=== PATIENT | female | born 1965 | race African-American/Black ===

== ENCOUNTER 2016-09-13 19:41 | Inpatient (IN) | payer MEDICAID ==
[~2016-09-13] VITALS: Ht 165.1 cm; Wt 91.6 kg
[~2016-09-13 19:41] MED LIST: FAMO20TA7 PO; GABA100C8 PO; LISI-170 PO; METR250T PO; QUET300T6 PO
[2016-09-13] MEDS ORDERED: SODIUM CHLORIDE FLUSH 10ML SYR IVF ONE (20:00)
[2016-09-13] MEDS ORDERED: SODIUM CHLORIDE 0.9% 1,000ML IVBOLUS ONE (20:00)
[2016-09-13] MEDS ORDERED: ONDANSETRON 2MG/ML, 2ML IVPush ONE (20:00)
[2016-09-13 20:18] LABS: HEMOGLOBIN 10.9 g/dL (11.7-16.4)
[2016-09-13 20:21] LABS: BLOOD UREA NITROGEN 10 mg/dL (7-18)
[2016-09-13 20:27] LABS: ASPARTATE AMINO TRANSFERASE 82 U/L (15-37); IS PT STATUS REG ER OR PRE ER? YES
[2016-09-13] MEDS ORDERED: ONDANSETRON 2MG/ML, 2ML ONE (20:51)
[2016-09-13] MEDS ORDERED: LORazepam 2 MG/ML, 1ML ONE (20:51)
[2016-09-13] MEDS ORDERED: LORazepam 2 MG/ML, 1ML IVPush ONE (21:00)
[2016-09-13] MEDS: NS + 20MEQ KCL 1,000 ML IV SCH (23:50)
[2016-09-14] MEDS ORDERED: MORPHINE SULFATE 4 MG/ML, 1ML IVPush PRN
[2016-09-14] MEDS ORDERED: POTASSIUM CHLORIDE 20 MEQ, MAGNESIUM SULFATE 1 GM, THIAMINE 100 MG, FOLIC ACID 1 MG, MV... IV SCH
[2016-09-14] MEDS ORDERED: ONDANSETRON 2MG/ML, 2ML IVP PRN
[2016-09-14] MEDS: FAMOTIDINE 20 MG/2 ML IV SCH ×2 (01:50→09:36)
[2016-09-14] MEDS: LORazepam 2 MG/ML, 1ML IVPush PRN ×2 (01:51→09:36)
[2016-09-14 02:00] VITALS: BP 163/90
[2016-09-14 04:14] VITALS: BP 163/90
[2016-09-14 07:21] VITALS: BP 156/100
[2016-09-14] MEDS: QUETIAPINE FUMARATE 300 MG HOMEMEDPO SCH (09:00)
[2016-09-14] MEDS: ENOXAPARIN 40 MG/0.4 ML SQ SCH (09:36)
[2016-09-14] MEDS: LISINOPRIL 20 MG TABLET PO SCH (09:36)
[2016-09-14] MEDS: GABAPENTIN 100 MG CAPSULE PO SCH (09:36)
[2016-09-14 11:31] LABS: HEMOGLOBIN 10.7 g/dL (11.7-16.4)
[2016-09-14 11:32] LABS: ASPARTATE AMINO TRANSFERASE 76 U/L (15-37); BLOOD UREA NITROGEN 5 mg/dL (7-18)
[2016-09-14] MEDS: NS + 20MEQ KCL 1,000 ML IV SCH (11:43)
[2016-09-14 13:10] VITALS: BP 147/91
[2016-09-14] MEDS ORDERED: LACTATED RINGERS 1,000 ML IV SCH (14:00)
[2016-09-14] MEDS ORDERED: LACTATED RINGERS 1,000 ML IVBOLUS ONE (14:00)
[2016-09-14 22:15] VITALS: BP 126/76
[2016-09-14] MEDS ORDERED: ONDANSETRON ODT 4 MG ONE (22:20)
[2016-09-14] MEDS: BACLOFEN 10 MG TABLET PO SCH (22:21)
[2016-09-14] MEDS ORDERED: ONDANSETRON ODT 4 MG PO PRN (22:30)
[2016-09-15 01:36] VITALS: BP 132/71
[2016-09-15 06:50] VITALS: BP 154/84
[2016-09-15] MEDS: QUETIAPINE FUMARATE 300 MG HOMEMEDPO SCH (09:00)
[2016-09-15] MEDS: ENOXAPARIN 40 MG/0.4 ML SQ SCH (10:03)
[2016-09-15] MEDS: LISINOPRIL 20 MG TABLET PO SCH (10:04)
[2016-09-15] MEDS: THIAMINE 100MG TABLET PO SCH (10:04)
[2016-09-15] MEDS: BACLOFEN 10 MG TABLET PO SCH ×2 (10:04→19:46)
[2016-09-15] MEDS: FOLIC ACID 1 MG TABLET PO SCH (10:04)
[2016-09-15] MEDS: GABAPENTIN 100 MG CAPSULE PO SCH (10:04)
[2016-09-15] MEDS: CYANOCOBALAMIN 1,000 MCG TABLET PO SCH (10:04)
[2016-09-15] MEDS: MULTIVITAMIN 1 TABLET PO SCH (10:05)
[2016-09-15 10:09] LABS: HEMOGLOBIN 10.3 g/dL (11.7-16.4)
[2016-09-15 10:10] LABS: BLOOD UREA NITROGEN 7 mg/dL (7-18)
[2016-09-15 10:15] LABS: ASPARTATE AMINO TRANSFERASE 86 U/L (15-37)
[2016-09-15] MEDS ORDERED: LORazepam 1MG TABLET PO PRN ×2 (11:30)
[2016-09-15 12:47] VITALS: BP 149/82
[2016-09-15 19:50] VITALS: BP 158/81
[2016-09-16] MEDS: OXYcodone IR 5MG TABLET PO PRN ×4 (00:55→20:17)
[2016-09-16 03:32] VITALS: BP 150/85
[2016-09-16 06:51] VITALS: BP 177/97
[2016-09-16] MEDS: ENOXAPARIN 40 MG/0.4 ML SQ SCH (07:28)
[2016-09-16] MEDS: GABAPENTIN 100 MG CAPSULE PO SCH (07:28)
[2016-09-16] MEDS: THIAMINE 100MG TABLET PO SCH (07:28)
[2016-09-16] MEDS: BACLOFEN 10 MG TABLET PO SCH ×2 (07:28→20:20)
[2016-09-16] MEDS: LISINOPRIL 20 MG TABLET PO SCH ×2 (07:28→20:19)
[2016-09-16] MEDS: FOLIC ACID 1 MG TABLET PO SCH (07:28)
[2016-09-16] MEDS: MULTIVITAMIN 1 TABLET PO SCH (07:28)
[2016-09-16] MEDS: CYANOCOBALAMIN 1,000 MCG TABLET PO SCH (07:29)
[2016-09-16] MEDS ORDERED: KETOROLAC 30 MG/1 ML IVPush PRN (11:00)
[2016-09-16] MEDS: QUETIAPINE 100MG TABLET PO SCH ×2 (12:53→20:19)
[2016-09-16] MEDS: METHOCARBAMOL 750 MG TABLET PO SCH ×3 (12:53→21:00)
[2016-09-16] MEDS: PREGABALIN 25 MG CAPSULE PO SCH ×3 (12:54→20:20)
[2016-09-16 12:57] VITALS: BP 169/95
[2016-09-16 19:05] VITALS: BP 132/83
[2016-09-17 03:07] VITALS: BP 144/87
[2016-09-17] MEDS: METHOCARBAMOL 750 MG TABLET PO SCH ×4 (05:06→21:30)
[2016-09-17] MEDS: OXYcodone IR 5MG TABLET PO PRN ×4 (05:07→21:30)
[2016-09-17 06:55] VITALS: BP 130/84
[2016-09-17] MEDS: ENOXAPARIN 40 MG/0.4 ML SQ SCH (08:20)
[2016-09-17] MEDS: MULTIVITAMIN 1 TABLET PO SCH (08:21)
[2016-09-17] MEDS: QUETIAPINE 100MG TABLET PO SCH ×2 (08:22→21:30)
[2016-09-17] MEDS: LISINOPRIL 20 MG TABLET PO SCH ×2 (08:23→21:31)
[2016-09-17] MEDS: PREGABALIN 25 MG CAPSULE PO SCH ×3 (08:23→21:31)
[2016-09-17] MEDS: BACLOFEN 10 MG TABLET PO SCH ×2 (08:23→21:31)
[2016-09-17] MEDS: FOLIC ACID 1 MG TABLET PO SCH (08:23)
[2016-09-17] MEDS: THIAMINE 100MG TABLET PO SCH (08:24)
[2016-09-17] MEDS: CYANOCOBALAMIN 1,000 MCG TABLET PO SCH (08:25)
[2016-09-17 14:49] VITALS: BP 147/89
[2016-09-17] MEDS ORDERED: OMNIPAQUE 350 MG/ML, 100ML BOTTLE ONE (18:00)
[2016-09-17 19:48] VITALS: BP 154/81
[2016-09-18 02:00] VITALS: BP 123/77
[2016-09-18] MEDS: METHOCARBAMOL 750 MG TABLET PO SCH ×4 (05:21→20:44)
[2016-09-18 06:38] VITALS: BP 186/117
[2016-09-18] MEDS: ENOXAPARIN 40 MG/0.4 ML SQ SCH (08:38)
[2016-09-18] MEDS: BACLOFEN 10 MG TABLET PO SCH ×2 (08:38→20:46)
[2016-09-18] MEDS: FOLIC ACID 1 MG TABLET PO SCH (08:38)
[2016-09-18] MEDS: MULTIVITAMIN 1 TABLET PO SCH (08:39)
[2016-09-18] MEDS: QUETIAPINE 100MG TABLET PO SCH ×2 (08:39→20:44)
[2016-09-18] MEDS: PREGABALIN 25 MG CAPSULE PO SCH (08:39)
[2016-09-18] MEDS: THIAMINE 100MG TABLET PO SCH (08:39)
[2016-09-18] MEDS: OXYcodone IR 5MG TABLET PO PRN (08:39)
[2016-09-18] MEDS: CYANOCOBALAMIN 1,000 MCG TABLET PO SCH (08:39)
[2016-09-18] MEDS: LISINOPRIL 20 MG TABLET PO SCH ×2 (08:39→20:44)
[2016-09-18 13:37] VITALS: BP 131/82
[2016-09-18] MEDS: PREGABALIN 75 MG CAPSULE PO SCH ×2 (16:33→20:46)
[2016-09-18 19:56] VITALS: BP 157/90
[2016-09-19 03:00] VITALS: BP 171/98
[2016-09-19 05:09] LABS: HEMOGLOBIN 10.6 g/dL (11.7-16.4)
[2016-09-19 05:14] LABS: BLOOD UREA NITROGEN 9 mg/dL (7-18)
[2016-09-19] MEDS: METHOCARBAMOL 750 MG TABLET PO SCH ×4 (05:16→22:04)
[2016-09-19 06:46] VITALS: BP 178/119
[2016-09-19] MEDS: LABETALOL 5MG/ML, 20ML IV PRN (06:50)
[2016-09-19] MEDS: MULTIVITAMIN 1 TABLET PO SCH (08:21)
[2016-09-19] MEDS: ENOXAPARIN 40 MG/0.4 ML SQ SCH (08:21)
[2016-09-19] MEDS: LISINOPRIL 20 MG TABLET PO SCH ×2 (08:22→22:04)
[2016-09-19] MEDS: BACLOFEN 10 MG TABLET PO SCH ×2 (08:22→22:04)
[2016-09-19] MEDS: FOLIC ACID 1 MG TABLET PO SCH (08:22)
[2016-09-19] MEDS: THIAMINE 100MG TABLET PO SCH ×2 (08:22→18:35)
[2016-09-19] MEDS: CYANOCOBALAMIN 1,000 MCG TABLET PO SCH (08:23)
[2016-09-19] MEDS: PREGABALIN 75 MG CAPSULE PO SCH ×3 (08:23→22:04)
[2016-09-19] MEDS: QUETIAPINE 100MG TABLET PO SCH ×2 (08:24→22:04)
[2016-09-19 08:52] VITALS: BP 176/95
[2016-09-19] MEDS: OXYcodone IR 5MG TABLET PO PRN (11:45)
[2016-09-19 14:02] VITALS: BP 141/83
[2016-09-19 18:38] VITALS: BP 142/89
[2016-09-20 02:48] VITALS: BP 180/105
[2016-09-20] MEDS: OXYcodone IR 5MG TABLET PO PRN (02:54)
[2016-09-20] MEDS: LABETALOL 5MG/ML, 20ML IV PRN (02:55)
[2016-09-20] MEDS: METHOCARBAMOL 750 MG TABLET PO SCH (05:37)
[2016-09-20] MEDS: BACLOFEN 10 MG TABLET PO SCH (08:25)
[2016-09-20] MEDS: ENOXAPARIN 40 MG/0.4 ML SQ SCH (08:25)
[2016-09-20] MEDS: MULTIVITAMIN 1 TABLET PO SCH (08:25)
[2016-09-20] MEDS: PREGABALIN 75 MG CAPSULE PO SCH (08:25)
[2016-09-20] MEDS: QUETIAPINE 100MG TABLET PO SCH (08:26)
[2016-09-20] MEDS: FOLIC ACID 1 MG TABLET PO SCH (08:26)
[2016-09-20] MEDS: THIAMINE 100MG TABLET PO SCH ×2 (08:26→08:30)
[2016-09-20] MEDS: LISINOPRIL 20 MG TABLET PO SCH (08:27)
[2016-09-20] MEDS: CYANOCOBALAMIN 1,000 MCG TABLET PO SCH (08:28)
[2016-09-20 08:41] VITALS: BP 119/75
[2016-09-20] MEDS ORDERED: FOLI-17 PO (09:36)
[2016-09-20] MEDS ORDERED: OXYC5TAB3 PO (09:36)
[2016-09-20] MEDS ORDERED: THIA100T6 PO (09:36)
[2016-09-20] MEDS ORDERED: FAMO20TA7 PO (09:36)
[2016-09-20] MEDS ORDERED: QUET300T6 PO (09:36)
[2016-09-20] MEDS ORDERED: LISI-170 PO (09:36)
[2016-09-20] MEDS ORDERED: GABA100C8 PO (09:36)
== END 2016-09-20 12:40 | disposition hospice, inpatient (51) | DRG 895 ==
LOC: ED 20:37 → EDIP 20:38 → ED 20:48 → 3NE 22:00 → DCLOUNGE 09-20 12:17
PROVIDERS: ADMIT Internal Medicine
PROC: HZ2ZZZZ Detoxification Services for Substance Abuse Treatment (ICD-10-PCS; principal; 2016-09-13)
PROC: HZ34ZZZ Individual Counseling for Substance Abuse Treatment, Interpersonal (ICD-10-PCS; 2016-09-13)
DX: F10.229 Alcohol dependence with intoxication, unspecified (principal); K85.20 Alcohol induced acute pancreatitis without necrosis or infection; F10.239 Alcohol dependence with withdrawal, unspecified; E87.6 Hypokalemia; F20.9 Schizophrenia, unspecified; F31.9 Bipolar disorder, unspecified; I10 Essential (primary) hypertension; D64.9 Anemia, unspecified; G62.9 Polyneuropathy, unspecified; Y90.3 Blood alcohol level of 60-79 mg/100 ml; D25.9 Leiomyoma of uterus, unspecified; F41.1 Generalized anxiety disorder; R56.9 Unspecified convulsions; G89.29 Other chronic pain; M79.606 Pain in leg, unspecified; Z59.0 Homelessness; Z71.41 Alcohol abuse counseling and surveillance of alcoholic
CPT/HCPCS: 36415; 71010; 72190; 74177; 76830; 80048; 80053; 80307; 82550; 83036; 83690; 83735; 84100; 84484; 85025; 93005; 93970; 96374; 96375; J1650; J2405; J3411; J3475; J3480; Q0162; Q9967; J2060; J7030; S0028

== ENCOUNTER 2018-01-22 04:15 | Emergency (ER) | payer MEDICAID ==
[~2018-01-22] VITALS: Ht 165.1 cm; Wt 100.0 kg
[~2018-01-22 04:15] MED LIST changes: +FOLI-17 PO; +GABA-826 PO; -GABA100C8 PO; +OXYC5TAB3 PO; +THIA100T6 PO
[2018-01-22 06:09] LABS: AMPHETAMINE SCREEN, URINE Positive (Negative); BARBITURATE SCREEN, URINE Negative (Negative); BENZODIAZEPINE SCREEN, URINE Positive (Negative); CANNABINOID SCREEN, URINE Positive (Negative); COCAINE SCREEN, URINE Negative (Negative); METHADONE SCREEN, URINE Negative (Negative); OPIATE SCREEN, URINE Negative (Negative)
[2018-01-22 06:22] LABS: BASOPHILS # (AUTO) 0.01 x10^3/uL (0-0.1); BASOPHILS % (AUTO) 0 % (0-1); EOSINOPHILS # (AUTO) 0.03 x10^3/uL (0-0.4); EOSINOPHILS % (AUTO) 1 % (1-7); LYMPHOCYTES # (AUTO) 1.57 x10^3/uL (1-3.4); LYMPHOCYTES % (AUTO) 47 % (22-44); MD NO; MEAN CORPUSCULAR HEMOGLOBIN 31.7 pg (27.0-34.8); MEAN CORPUSCULAR HGB CONC 33.5 g/dL (32.4-35.8); MEAN CORPUSCULAR VOLUME 94.5 fL (80-100); MEAN PLATELET VOLUME 7.6 fL (7.4-10.4); MONOCYTES # (AUTO) 0.42 x10^3/uL (0.2-0.8); MONOCYTES % (AUTO) 13 % (2-9); NEUTROPHILS # (AUTO) 1.33 x10^3/uL (1.8-6.8); NEUTROPHILS % (AUTO) 40 % (42-75); PLATELET COUNT 188 x10^3/uL (130-400); RED BLOOD COUNT 3.85 x10^6/uL (3.82-5.3); RED CELL DISTRIBUTION WIDTH 15.5 % (9.6-15.2)
[2018-01-22 06:35] LABS: CHLORIDE 108 mmol/L (98-107)
[2018-01-22 06:51] LABS: ACETAMINOPHEN < 2 mcg/mL (10-30); ALANINE AMINOTRANSFERASE 125 U/L (12-78); ALBUMIN 3.5 g/dL (3.4-5.0); ALKALINE PHOSPHATASE 99 U/L (45-117); ANION GAP 5 mmol/L (5-15); BILIRUBIN,TOTAL 0.8 mg/dL (0.2-1.0); CREATININE 0.53 mg/dL (0.55-1.02); SALICYLATE LEVEL 2.1 mg/dL (2.8-20.0); TOTAL PROTEIN 8.5 g/dL (6.4-8.2)
[2018-01-22] MEDS ORDERED: KETOROLAC 30 MG/1 ML ONE (08:02)
[2018-01-22] MEDS ORDERED: KETOROLAC 60 MG/2 ML IM ONE (08:30)
[2018-01-22 13:27] VITALS: BP 172/90
== END 2018-01-22 13:32 | disposition home or self-care (01) ==
LOC: ED 08:23
DX: F15.10 Other stimulant abuse, uncomplicated (principal); R45.851 Suicidal ideations; Z79.899 Other long term (current) drug therapy
CPT/HCPCS: 36415; 70450; 80053; 80307; 80329; 84443; 84703; 85025; 93005; 96372; 99285; J1885; G0480

== ENCOUNTER 2018-02-06 08:46 | Emergency (ER) | payer MEDICAID ==
[~2018-02-06] VITALS: Ht 165.1 cm; Wt 95.0 kg
[~2018-02-06 08:46] MED LIST changes: -THIA100T6 PO; +THIA100T67 PO
[2018-02-06 08:59] VITALS: BP 195/116
== END 2018-02-06 09:28 | disposition left against medical advice (07) ==
LOC: ED 09:22
DX: K62.5 Hemorrhage of anus and rectum (principal); Z53.21 Procedure and treatment not carried out due to patient leaving prior to being seen by health care provider

== ENCOUNTER 2018-04-05 01:49 | Emergency (ER) | payer MEDICAID ==
[~2018-04-05] VITALS: Ht 170.2 cm; Wt 105.0 kg
[2018-04-05 01:56] VITALS: BP 127/82
== END 2018-04-05 03:13 | disposition home or self-care (01) ==
LOC: EDBD → ED 02:30
DX: F15.220 Other stimulant dependence with intoxication, uncomplicated (principal); I10 Essential (primary) hypertension
CPT/HCPCS: 99283

== ENCOUNTER 2018-04-05 13:21 | Emergency (ER) | payer OTHER ==
[~2018-04-05] VITALS: Ht 165.1 cm; Wt 62.0 kg
[2018-04-05 13:37] VITALS: BP 151/96
[2018-04-05 14:28] LABS: ALBUMIN 3.7 g/dL (3.4-5.0); ANION GAP 12 mmol/L (5-15); CALCIUM 8.8 mg/dL (8.5-10.1); CHLORIDE 102 mmol/L (98-107)
[2018-04-05 14:34] LABS: ALANINE AMINOTRANSFERASE 50 U/L (12-78); ALKALINE PHOSPHATASE 80 U/L (45-117); BILIRUBIN,TOTAL 0.6 mg/dL (0.2-1.0); CREATININE 0.46 mg/dL (0.55-1.02); TOTAL PROTEIN 8.5 g/dL (6.4-8.2); TROPONIN I < 0.015 ng/mL (0.000-0.045)
[2018-04-05 14:48] LABS: BASOPHILS # (AUTO) 0.08 x10^3/uL (0-0.1); BASOPHILS % (AUTO) 1 % (0-1); EOSINOPHILS # (AUTO) 0.03 x10^3/uL (0-0.4); EOSINOPHILS % (AUTO) 1 % (1-7); LYMPHOCYTES # (AUTO) 2.17 x10^3/uL (1-3.4); LYMPHOCYTES % (AUTO) 36 % (22-44); MD NO; MEAN CORPUSCULAR HEMOGLOBIN 31.9 pg (27.0-34.8); MEAN CORPUSCULAR VOLUME 93.8 fL (80-100); MEAN PLATELET VOLUME 8.2 fL (7.4-10.4); MONOCYTES # (AUTO) 0.67 x10^3/uL (0.2-0.8); MONOCYTES % (AUTO) 11 % (2-9); NEUTROPHILS # (AUTO) 3.04 x10^3/uL (1.8-6.8); NEUTROPHILS % (AUTO) 51 % (42-75); PLATELET COUNT 213 x10^3/uL (130-400); RED BLOOD COUNT 3.92 x10^6/uL (3.82-5.3); RED CELL DISTRIBUTION WIDTH 15.4 % (9.6-15.2)
== END 2018-04-05 15:55 | disposition home or self-care (01) ==
LOC: EDBD → EDUNIT# 13:21 → ED 15:49
DX: R60.1 Generalized edema (principal); I10 Essential (primary) hypertension
CPT/HCPCS: 36415; 80053; 83880; 84484; 85025; 99284

== ENCOUNTER 2018-04-27 22:55 | Emergency (ER) | payer OTHER ==
[~2018-04-27] VITALS: Ht 170.2 cm; Wt 119.0 kg
[2018-04-27 23:56] VITALS: BP 164/79
== END 2018-04-28 00:03 | disposition home or self-care (01) ==
LOC: ED 23:55
DX: F15.10 Other stimulant abuse, uncomplicated (principal); I10 Essential (primary) hypertension
CPT/HCPCS: 99283

== ENCOUNTER 2018-05-13 11:48 | Emergency (ER) | payer OTHER ==
[~2018-05-13] VITALS: Ht 165.1 cm; Wt 70.0 kg
[2018-05-13] MEDS ORDERED: HYDROmorphone 1 MG/ML, 1ML IVPush PRN (12:30)
[2018-05-13] MEDS ORDERED: SODIUM CHLORIDE FLUSH 10ML SYR IVF ONE (12:30)
[2018-05-13] MEDS ORDERED: ONDANSETRON ODT 4 MG PO ONE (12:30)
[2018-05-13] MEDS ORDERED: ONDANSETRON ODT 4 MG ONE (13:07)
[2018-05-13] MEDS ORDERED: HYDROmorphone 2 MG/ML, 1ML ONE (13:08)
[2018-05-13 13:25] LABS: MEAN CORPUSCULAR HEMOGLOBIN 31.9 pg (27.0-34.8); MEAN CORPUSCULAR HGB CONC 34.2 g/dL (32.4-35.8); MEAN CORPUSCULAR VOLUME 93.4 fL (80-100); MEAN PLATELET VOLUME 7.8 fL (7.4-10.4); PLATELET COUNT 271 x10^3/uL (130-400); RED BLOOD COUNT 3.79 x10^6/uL (3.82-5.3); RED CELL DISTRIBUTION WIDTH 16.9 % (9.6-15.2)
[2018-05-13 13:28] LABS: ALANINE AMINOTRANSFERASE 47 U/L (12-78); ALBUMIN 3.5 g/dL (3.4-5.0); ANION GAP 11 mmol/L (5-15); CALCIUM 9.3 mg/dL (8.5-10.1); CHLORIDE 97 mmol/L (98-107)
[2018-05-13] MEDS ORDERED: HYDROmorphone 2 MG/ML, 1ML IM ONE (13:30)
[2018-05-13 13:32] LABS: ALKALINE PHOSPHATASE 108 U/L (45-117); BILIRUBIN,TOTAL 0.6 mg/dL (0.2-1.0); CREATININE 0.39 mg/dL (0.55-1.02); TOTAL PROTEIN 8.4 g/dL (6.4-8.2)
[2018-05-13 13:40] LABS: BASOPHILS # (AUTO) 0.06 x10^3/uL (0-0.1); BASOPHILS % (AUTO) 1 % (0-1); EOSINOPHILS # (AUTO) 0.04 x10^3/uL (0-0.4); EOSINOPHILS % (AUTO) 1 % (1-7); LYMPHOCYTES # (AUTO) 1.77 x10^3/uL (1-3.4); LYMPHOCYTES % (AUTO) 36 % (22-44); MD SCAN; MONOCYTES # (AUTO) 0.36 x10^3/uL (0.2-0.8); MONOCYTES % (AUTO) 7 % (2-9); NEUTROPHILS # (AUTO) 2.76 x10^3/uL (1.8-6.8); NEUTROPHILS % (AUTO) 55 % (42-75)
[2018-05-13 14:07] LABS: CULTURE INDICATED? NO; MICROSCOPIC NOT IND
[2018-05-13 15:02] VITALS: BP 132/74
== END 2018-05-13 15:13 | disposition home or self-care (01) ==
LOC: ED 14:58
DX: M25.551 Pain in right hip (principal); M19.90 Unspecified osteoarthritis, unspecified site; M71.22 Synovial cyst of popliteal space [Baker], left knee; D21.9 Benign neoplasm of connective and other soft tissue, unspecified
CPT/HCPCS: 36415; 73502; 80053; 81003; 83880; 85025; 93970; 96372; 99285; J1170; Q0162